=== PATIENT | male | born 1970 | race Native Hawaiian/Other Pacific Islander ===

== ENCOUNTER 2021-02-06 20:58 | Emergency (ER) | payer OTHER ==
[~2021-02-06] VITALS: Ht 170.2 cm; Wt 142.9 kg
[2021-02-06 21:28] LABS: PLATELET COUNT 197 K/uL (142-355)
[2021-02-06 21:44] LABS: POTASSIUM 4.7 mmol/L (3.6-5.2)
[2021-02-06 22:15] VITALS: BP 126/69; TEMP 97
[2021-02-07] MEDS ORDERED: TOPIRAMATE50 MG PO (13:46)
[2021-02-07] MEDS ORDERED: BENZTROPINE0.5 MG PO (13:48)
[2021-02-07] MEDS ORDERED: HALO5TAB10 PO (13:49)
[2021-02-07] MEDS ORDERED: TRAMADOL HYDROC50 MG PO (13:50)
[2021-02-07] MEDS ORDERED: GABA300C2 PO (13:55)
[2021-02-07] MEDS ORDERED: EUTHYROX50 MCG PO (13:56)
[2021-02-07] MEDS ORDERED: HUMALOG KW100 UNIT/M SC (13:57)
[2021-02-07] MEDS ORDERED: LITHIUM CARB300 M2 PO (13:59)
[2021-02-07] MEDS ORDERED: INSULIN GLARGINE 100 UNIT/ML SC (14:01)
[2021-02-07] MEDS ORDERED: BUSPIRONE5 MG PO (14:03)
[2021-02-07] MEDS ORDERED: DULOXETINE HCL30 MG PO (14:04)
[2021-02-07] MEDS ORDERED: OZEMPIC2 MG/1.5 M SC (14:07)
[2021-02-07] MEDS ORDERED: SEMGLEE SC (14:10)
== END 2021-02-06 22:15 | disposition still patient (30) ==
LOC: ED 20:58
PROVIDERS: Hospitalist
DX: F22 Delusional disorders (principal); R45.1 Restlessness and agitation; F25.8 Other schizoaffective disorders; Z11.52 Encounter for screening for COVID-19; Z04.6 Encounter for general psychiatric examination, requested by authority
CPT/HCPCS: 36415; 80053; 85027; 87635; 93005; 99283; U0003

== ENCOUNTER 2021-09-18 22:21 | Emergency (ER) | payer OTHER ==
[~2021-09-18] VITALS: Ht 170.2 cm; Wt 152.9 kg
[~2021-09-18 22:21] MED LIST: BENZTROPINE0.5 MG PO; BUSP15TAB2 PO; BUSPIRONE5 MG PO; CYAN10009 IM; DULO30CA PO; DULOXETINE HCL30 MG PO; EUTHYROX50 MCG PO; GABA300C2 PO; HALO5TAB10 PO; HUMALOG KW100 UNIT/M SC; INSULIN GLARGINE 100 UNIT/ML SC; LITHIUM CARB300 M2 PO; MAGN400T4 PO; OZEMPIC2 MG/1.5 M SC; SEMGLEE SC; TOPIRAMATE50 MG PO; TRAMADOL HYDROC50 MG PO; VITAMIN D50000 UNIT PO
[2021-09-18 23:06] LABS: PLATELET COUNT 196 K/uL (142-355)
[2021-09-18 23:11] LABS: POTASSIUM 3.5 mmol/L (3.6-5.2)
[2021-09-19 00:29] VITALS: BP 129/78; TEMP 98.2
[2021-09-19] MEDS ORDERED: VITAMIN D50000 UNIT PO (06:26)
[2021-09-19] MEDS ORDERED: FURO20TA67 PO (06:27)
[2021-09-19] MEDS ORDERED: LAMOTRIGINE25 MG PO (06:28)
[2021-09-19] MEDS ORDERED: LANTUS SOL100 UNIT/M SC (06:30)
[2021-09-19] MEDS ORDERED: LANTUS100 UNIT/M SC (06:31)
[2021-09-19] MEDS ORDERED: RISP0.5T2 PO (06:34)
[2021-09-19] MEDS ORDERED: INSULIN AS100 UNIT/M SC (06:43)
[2021-09-19] MEDS ORDERED: TRAMADOL HYDROC50 MG PO (06:45)
== END 2021-09-19 00:29 | disposition still patient (30) ==
LOC: ED 22:21
PROVIDERS: Emergency Medicine Emergency Medical Services
DX: F91.8 Other conduct disorders (principal); Z11.52 Encounter for screening for COVID-19; Z79.899 Other long term (current) drug therapy
CPT/HCPCS: 36415; 80053; 85027; 87635; 93005; 99283; U0003

== ENCOUNTER 2021-11-04 22:42 | Emergency (ER) | payer OTHER ==
[~2021-11-04] VITALS: Ht 180.3 cm; Wt 155.6 kg
[~2021-11-04 22:42] MED LIST changes: +CONGENTIN 1MG TAB PO; +DIVALPROEX250 MG PO; +DIVALPROEX500 MG PO; +FURO20TA67 PO; +INSU100P SC; +INSU300I SC; +INSULIN AS100 UNIT/M SC; +LAMOTRIGINE25 MG PO; +LANTUS SOL100 UNIT/M SC; +LANTUS100 UNIT/M SC; +LEVO0.0529 PO; +RISP0.5T2 PO; +RISP1TAB PO
[2021-11-04 23:03] LABS: PLATELET COUNT 147 K/uL (142-355)
[2021-11-05 00:30] VITALS: BP 124/76; TEMP 98.2
[2021-11-05] MEDS ORDERED: NOVOLOG FL100 UNIT/M SC ×3 (09:31→09:42)
[2021-11-05] MEDS ORDERED: BENZ1TAB43 PO (09:33)
[2021-11-05] MEDS ORDERED: BUSPIRONE15 MG PO (09:38)
[2021-11-05] MEDS ORDERED: GABAPENTIN PO (09:39)
== END 2021-11-05 00:30 | disposition still patient (30) ==
LOC: ED 22:42
PROVIDERS: Emergency Medicine Emergency Medical Services
DX: R46.89 Other symptoms and signs involving appearance and behavior (principal); R45.1 Restlessness and agitation; Z11.52 Encounter for screening for COVID-19; Z04.6 Encounter for general psychiatric examination, requested by authority
CPT/HCPCS: 36415; 80053; 85027; 87635; 93005; 99283; U0003